=== PATIENT | female | born 1935 | race Caucasian/White ===

== ENCOUNTER 2018-10-09 12:37 | Emergency (ER) | payer MEDICARE, OTHER ==
[~2018-10-09] VITALS: Ht 154.9 cm; Wt 43.7 kg
[~2018-10-09 12:37] MED LIST: ATEN-51; CALC500T10; LOSA50TA2
[2018-10-09 12:45] VITALS: Ht 154.9 cm; Wt 43.7 kg
[2018-10-09] MEDS ORDERED: ONDANSETRON 4 MG INJ IV STA (14:03)
[2018-10-09] MEDS ORDERED: SOD CHLORIDE 0.9% 1,000 ML IV STA (14:03)
[2018-10-09] MEDS ORDERED: morphine 2 MG INJ IV STA (14:03)
[2018-10-09 17:18] VITALS: BP 134/72; PULSE 69; RESP 22
[2018-10-09] MEDS ORDERED: NAPR-985 PO (17:20)
--- NOTE | 2018-10-09 17:46 | ERD ---
ER Documentation Chief Complaint Chief Complaint lower back pain 1wk, some relief with lidocaine shot HPI This is an 83-year-old female with no past medical history. The patient presents to the emergency department complaining of lower back pain that is been present for 1 week. The pain was exacerbated with movement. She stated the pain started a day after she had strenuous activity and exertion with heavy lifting. She went to see her primary care physician 2 days ago and was given a lidocaine shot. She stated the pain had improved. However the pain did not completely resolved. She states that the pain is more prominent in the right flank region at this time. The pain does not radiate to the right lower quadrant. She denies any changes in her bladder or bowel frequency. She has no shortness of breath at rest or exertion. She denies any saddle anesthesia. She said no fevers or shaking or chills. She denies any frequency urgency or dysuria no hematuria. She denies a headache. ROS All systems reviewed and are negative except as per history of present illness. Medications Home Meds Active Scripts Naproxen* (Naprosyn*) 500 Mg Tablet, 500 MG PO BID PRN for PAIN AND/OR INFLAMMATION, #30 TAB Prov:DAMIAN MA MD 10/09/18 Reported Medications Calcium Carbonate (Os-Matteo 500 Chew) 1 Tab.chew Tab.chew 10/17/09 Atenolol* (Atenolol*) 25 Mg Tablet 10/17/09 Losartan Potassium* (Cozaar*) 50 Mg Tablet 10/17/09 Allergies Allergies: Coded Allergies: No Known Allergies (Verified Allergy, Mild, 10/17/09) PMhx/Soc History of Surgery: No Anesthesia Reaction: No Hx Neurological Disorder: No Hx Respiratory Disorders: No Hx Cardiac Disorders: Yes (HYPERTENSION) Hx Psychiatric Problems: No Hx Miscellaneous Medical Probl: No Hx Alcohol Use: No Hx Substance Use: No Hx Tobacco Use: No Smoking Status: Never smoker Physical Exam Vitals Vital Signs Date Temp Pulse Resp B/P (MAP) Pulse Ox O2 O2 Flow FiO2 Time Delivery Rate 10/09/18 99.0 69 22 134/72 97 Room Air 17:18 (92) 10/09/18 99.0 82 22 150/78 97 Room Air 16:32 (102) 10/09/18 99.0 72 20 174/84 97 Room Air 15:27 (114) 10/09/18 99.0 84 20 161/74 97 12:45 (103) Physical Exam Constitutional:Well-developed. Well-nourished. HEENT:Normocephalic. Atraumatic.Pupils were equal round reactive to light. Moist mucous membranes.No tonsillar exudates. Neck: No nuchal rigidity. No lymphadenopathy. No posterior cervical spine tenderness or step-offs. Respiratory: Not using accessory muscles of respiration.Lungs were clear to auscultation bilaterally. No rhonchi. No rales. No wheezing. Cardiovascular: Regular rate regular rhythm.No murmurs. No rubs were appreciated.S1, S2 normal. Distal pulses are palpable 2+ bilaterally. GI: Abdomen was soft. Right CVA tenderness. Non Distended. No pulsatile abdominal masses or bruits. No rebound. No guarding. Bowel sounds were present and normal. Muscle skeletal: Full range of motion of both the upper and lower extremities bilaterally.Normal muscle tone.No assymetrical calf tenderness or swelling. Paralumbar tenderness over L4-5 with no step-offs. No tenderness with palpation percussion of the thoracic or lumbar spinous processes Skin: No petechia, no purpura. No lesions on the palms or the soles of the feet. No maculopapular rash. NEURO: Patient was alert, awake, orientated x3.No facial droop. Gait observed and normal with no ataxia.Speech had regular rate and rhythm. No focal neurological deficits. Result Diagram: 10/09/18 1411 10/09/18 1409 Results 24 hrs Laboratory Tests Test 10/09/18 14:09 10/09/18 14:11 Sodium Level 131 mmol/L Potassium Level 4.1 mmol/L Chloride Level 102 mmol/L Carbon Dioxide Level 22 mmol/L Anion Gap 7 Blood Urea Nitrogen 15 mg/dl Creatinine 0.64 mg/dl Est Glomerular Filtrat Rate mL/min mL/min Glucose Level 121 mg/dl Calcium Level 9.2 mg/dl Total Bilirubin 0.2 mg/dl Direct Bilirubin 0.00 mg/dl Indirect Bilirubin 0.2 mg/dl Aspartate Amino Transf (AST/SGOT) 52 IU/L Alanine Aminotransferase (ALT/SGPT) 17 IU/L Alkaline Phosphatase 98 IU/L Total Protein 10.8 g/dl Albumin 4.5 g/dl Globulin 6.30 g/dl Albumin/Globulin Ratio 0.71 White Blood Count 5.9 10^3/ul Red Blood Count 3.17 10^6/ul Hemoglobin 10.1 g/dl Hematocrit 30.0 % Mean Corpuscular Volume 94.6 fl Mean Corpuscular Hemoglobin 31.9 pg Mean Corpuscular Hemoglobin Concent 33.7 g/dl Red Cell Distribution Width 12.5 % Platelet Count 206 10^3/UL Mean Platelet Volume 8.4 fl Immature Granulocytes % 0.300 % Neutrophils % 60.5 % Lymphocytes % 33.6 % Monocytes % 5.6 % Eosinophils % 0.0 % Basophils % 0.0 % Nucleated Red Blood Cells % 0.0 /100WBC Immature Granulocytes # 0.020 10^3/ul Neutrophils # 3.6 10^3/ul Lymphocytes # 2.0 10^3/ul Monocytes # 0.3 10^3/ul Eosinophils # 0.0 10^3/ul Basophils # 0.0 10^3/ul Nucleated Red Blood Cells # 0.0 10^3/ul Prothrombin Time 15.7 Sec Prothrombin Time Ratio 1.2 INR International Normalized Ratio 1.24 Activated Partial Thromboplast Time 28.0 Sec Urine Color COLORLESS Urine Clarity CLEAR Urine pH 7.0 Urine Specific [place] 1.002 Urine Ketones NEGATIVE mg/dL Urine Nitrite NEGATIVE mg/dL Urine Bilirubin NEGATIVE mg/dL Urine Urobilinogen NEGATIVE mg/dL Urine Leukocyte Esterase NEGATIVE Vicente/ul Urine Microscopic RBC 2 /HPF Urine Microscopic WBC 0 /HPF Urine Hemoglobin 2+ mg/dL Urine Glucose NEGATIVE mg/dL Urine Total Protein NEGATIVE mg/dl Troponin I < 0.012 ng/ml Amylase Level 88 U/L Lipase 178 U/L Current Medications Medications Dose Sig/Susan Start Time Status Last (Trade) Ordered Route PRN Stop Time Admin Dose Reason Admin Sodium 1,000 ml @ Q1H STAT 10/09/18 DC 10/09/18 Chloride 1,000 mls/hr IV 14:03 10/09/18 14:28 15:02 Morphine 2 mg ONCE STAT 10/09/18 DC 10/09/18 Sulfate IV 14:03 10/09/18 14:28 (morphine) 14:05 Ondansetron 4 mg ONCE STAT 10/09/18 DC 10/09/18 HCl (Zofran IV 14:03 3/3/19 14:28 Inj) 14:05 Procedures/MDM The patient presented to the emergency department with back pain. My differential diagnosis included but was not limited to spinal origins of the pain such as fracture, osteomyelitis, epidural abscess, neoplasm, spondylolishtesis, discogenic, cauda equina syndrome or musculoligamentous. Nonspinal causes such as AAA, upper UTI, renal colic, aortic dissection, abdo rene neoplasm were also considered as an etiology into their pain. I now 12 Lead EKG tracing ordered and reviewed by myself showed: Normal sinus rhythm of 83 bpm and no arrhythmia. IA interval normal. QRS duration normal. No ST segment elevation No ST segment depression. No changes consistent with acute ischemia. CT scan of the abdomen on reviewed by myself the radiologist indicate the follow ing: No evidence of urolithiasis, obstructive uropathy, diverticulitis or appendicitis. 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 Vascular calcifications. Right inguinal hernia containing fat. I did obtain a chest radiograph after the son also indicated that he noticed a cough which the patient initially denied. He states the cough had been interm ittent was worse at night for the past 2 days. Chest radiograph reviewed by myself the radiologist showed mild cardiomegaly and mild congestive changes the patient did not have any physical exam findings to suggest congestive heart failure. She received intravenous morphine and Zofran for analgesia control. Indicated the patient did not have an exact etiology into her flank pain but her symptoms could be result of arthritic changes. They will continue to follow-up with her primary care physician were given a prescription of anti- inflammatories. The patient was discharged home in fair condition. They were instructed to return to the emergency department at any time if there was any worsening of their condition. The patient stated they would follow up with their PCP in the next 24-48 hours to initiate a suitable medication regimen under the care of their PCP as well as to allow their PCP to monitor any drug reactions. The patient was discharged home with prescriptions after they gave informed consent to the new medication. They were also fully informed by myself on the adverse effects and adverse drug interactions in order to provide adequate safeguards to prevent possible adverse reactions to medications. Departure Diagnosis: Primary Impression: Right flank pain Condition: Fair Patient Instructions: Back Pain W/ Sciatica Referrals: JOSSY BYERS (PCP) DAMIAN MA MD Oct 09, 2018 17:46
== END 2018-10-09 17:46 | disposition home or self-care (01) ==
LOC: E/R 12:37
DX: R10.9 Unspecified abdominal pain (principal); I10 Essential (primary) hypertension
CPT/HCPCS: 71045; 74176; 80053; 81001; 82150; 83690; 84484; 85025; 85610; 85730; 87086; 93005; 96374; 96375; 99285; J2270; J2405; J7030